=== PATIENT | female | born 1965 | race Hispanic/Latino ===

== ENCOUNTER 2018-06-05 16:11 | Outpatient (CLI) | payer BC | END 2018-06-05 16:12 | disposition home or self-care (01) | LOC: BICMAMMO 16:11 | PROVIDERS: ATTEND Neurological Surgery | DX: Z12.31 Encounter for screening mammogram for malignant neoplasm of breast (principal) | CPT/HCPCS: 77063; 77067 ==

== ENCOUNTER 2018-08-05 16:03 | Outpatient (CLI) | payer BC ==
--- NOTE | 2018-08-05 16:48 | RAD ---
PA AND LATERAL VIEWS OF CHEST: Date: 08/05/18 HISTORY: Abnormal finding on lung field, mid chest pain when taking a deep breath. FINDINGS: There are no previous exams for comparison. The heart size is normal. The lungs are expanded without focal areas of consolidation, pneumothoraces or pleural effusions. There are mild degenerative changes in the spine. IMPRESSION: No radiographic evidence of acute cardiopulmonary process. POS: OFF
== END 2018-08-05 16:04 | disposition home or self-care (01) ==
LOC: BICRAD 16:03
PROVIDERS: ATTEND Family Medicine
DX: R91.8 Other nonspecific abnormal finding of lung field (principal)
CPT/HCPCS: 71046

== ENCOUNTER 2018-08-14 15:29 | Outpatient (CLI) | payer BC ==
--- NOTE | 2018-08-14 17:54 | ULT ---
PELVIC ULTRASOUND INCLUDING TRANSABDOMINAL AND TRANSVAGINAL EXAMINATIONS: HISTORY: A 53-year-old female with a history of pelvis pain. TECHNIQUE: No vascular duplex examination was performed. FINDINGS: The uterus is small, measuring 5.2 x 3.2 x 4 cm. The endometrium is 0.6 cm. The right and left ovar ies are not seen. The exam is limited because of body habitus. No abscess or abnormal fluid collect ion. No uterine masses. IMPRESSION: Somewhat small uterus. Nonvisualized right and left ovaries. No abscess or abnormal fluid collectio n or other acute process. POS: [facility]
== END 2018-08-14 15:30 | disposition home or self-care (01) ==
LOC: BICULT 15:29
PROVIDERS: ATTEND Family Medicine
DX: R10.2 Pelvic and perineal pain (principal); N95.0 Postmenopausal bleeding; N85.8 Other specified noninflammatory disorders of uterus
CPT/HCPCS: 76856

== ENCOUNTER 2019-08-30 10:06 | Outpatient (CLI) | payer BC ==
--- NOTE | 2019-08-30 12:00 | MMO ---
Bilateral MAMMO Bilat Diag [facility]. CLINICAL HISTORY: Patient is 54 years old and is seen for screening. The patient has no family history of breast cancer. The patient has no personal history of cancer. VIEWS: The views performed were: bilateral craniocaudal with tomosynthesis and bilateral mediolateral oblique with tomosynthesis. FILMS COMPARED: The present examination has been compared to prior imaging studies performed at [facility] [place] on 03/13/2015, 04/29/2016, 05/29/2017 and 06/05/2018. This study has been interpreted with the assistance of computer-aided detection. MAMMOGRAM FINDINGS: The breasts are almost entirely fat. There are no suspicious masses, suspicious calcifications, or new areas of architectural distortion. IMPRESSION: THERE IS NO MAMMOGRAPHIC EVIDENCE OF MALIGNANCY. A ROUTINE FOLLOW-UP MAMMOGRAM IN 1 YEAR IS RECOMMENDED. THE RESULTS OF THIS EXAM WERE SENT TO THE PATIENT. ACR BI-RADS Category 1 - Negative MAMMOGRAPHY NOTE: 1. A negative mammogram report should not delay a biopsy if a dominant of clinically suspicious mass is present. 2. Approximately 10% to 15% of breast cancers are not detected by mammography. 3. Adenosis and dense breasts may obscure an underlying neoplasm. Reported by: ARIAS CHIU MD Electonically Signed: [id number]
== END 2019-08-30 10:07 | disposition home or self-care (01) ==
LOC: BICMAMMO 10:06
PROVIDERS: ATTEND Family Medicine
DX: N64.4 Mastodynia (principal)
CPT/HCPCS: 77063; 77066; 77067; G0279

== ENCOUNTER 2019-09-12 15:55 | Emergency (ER) | payer BC ==
--- NOTE | 2019-09-12 16:19 | RAD ---
EXAM: Two views chest PROVIDED CLINICAL HISTORY: Chest pain COMPARISON: 08/05/2028 FINDINGS: Cardiac silhouette and pulmonary vasculature are within normal limits. Calcified granuloma is again seen in the right midlung zone. The lungs are otherwise clear. The osseous structures have a normal appearance. IMPRESSION: No acute cardiopulmonary process.
[2019-09-12 16:23] LABS: #Eosinphils 0.1 thou/uL (0.0-0.7); #Lymphocytes 1.3 thou/uL (1.20-3.40); #Monocytes 0.4 thou/uL (0.11-0.59); #Neutrophils 3.5 thou/uL (1.40-6.50); %Basophils 0.5 % (0.0-1.0); %Eosinophils 2.7 % (0.0-10.0); %Lymphocytes 24.4 % (21.0-51.0); %Neutrophils 64.4 % (42.0-75.0); Hemoglobin 13.4 g/dL (12.0-16.0); Mean Corpuscular HGB CONC 32.4 g/dL (32.0-36.0); Mean Corpuscular Volume 86.4 fL (78.0-98.0); Mean Platelet Volume 8.8 fL (7.4-10.4); Platelet Count 222 thou/uL (130-400); Red Blood Cell (RBC) Count 4.79 mill/uL (4.20-5.40); White Blood Cell (WBC) Count 5.4 thou/uL (4.8-10.8)
[2019-09-12 16:44] LABS: ALT (SGPT) 16 U/L (8-55); AST (SGOT) 18 U/L (5-34); Albumin 4.3 g/dL (3.5-5.0); Alkaline Phosphatase 97 U/L (40-110); Anion Gap 11 mmol/L (10-20); BUN (Urea Nitrogen) 12 mg/dL (9.8-20.1); Bilirubin, Total 0.4 mg/dL (0.2-1.2); CK (CPK) 59 U/L (29-168); Calc. Creatinine Clearance 0 mL/min (70-130); Calcium 9.2 mg/dL (7.8-10.44); Carbon Dioxide 30 mmol/L (22-29); Chloride 106 mmol/L (98-107); Estimated GFR-MDRD 84; Globulin 2.9 g/dL (2.4-3.5); Glucose 132 mg/dL (70-105); Potassium 4.1 mmol/L (3.5-5.1); Protein, Total 7.2 g/dL (6.0-8.3); Sodium 143 mmol/L (136-145)
== END 2019-09-12 17:25 | disposition home or self-care (01) ==
LOC: ERS 15:55
DX: J20.9 Acute bronchitis, unspecified (principal)
CPT/HCPCS: 36415; 71046; 80053; 82550; 84484; 85025; 93005

== ENCOUNTER 2021-02-14 08:06 | Outpatient (CLI) | payer BC | END 2021-02-14 08:07 | disposition home or self-care (01) | LOC: BICULT 08:06 | PROVIDERS: ATTEND Internal Medicine Gastroenterology | DX: R10.13 Epigastric pain (principal); K80.20 Calculus of gallbladder without cholecystitis without obstruction; K76.0 Fatty (change of) liver, not elsewhere classified | CPT/HCPCS: 76705 ==

== ENCOUNTER 2022-01-31 15:52 | Outpatient (CLI) | payer BC | END 2022-01-31 15:53 | disposition home or self-care (01) | LOC: BICMAMMO 15:52 | PROVIDERS: ATTEND Nurse Practitioner Family | DX: Z12.31 Encounter for screening mammogram for malignant neoplasm of breast (principal) | CPT/HCPCS: 77063; 77067 ==

== ENCOUNTER 2023-04-02 15:47 | Outpatient (CLI) | payer BC | END 2023-04-02 15:48 | disposition home or self-care (01) | LOC: BICMAMMO 15:47 | PROVIDERS: ATTEND Family Medicine | DX: Z12.31 Encounter for screening mammogram for malignant neoplasm of breast (principal) | CPT/HCPCS: 77063; 77067 ==

== ENCOUNTER 2023-06-05 07:50 | Outpatient (CLI) | payer BC | END 2023-06-05 07:51 | disposition home or self-care (01) | LOC: BICULT 07:50 | PROVIDERS: ATTEND Family Medicine | DX: R10.11 Right upper quadrant pain (principal); K80.20 Calculus of gallbladder without cholecystitis without obstruction; R16.0 Hepatomegaly, not elsewhere classified; K76.0 Fatty (change of) liver, not elsewhere classified | CPT/HCPCS: 76700 ==

== ENCOUNTER 2024-05-27 15:43 | Outpatient (CLI) | payer BC | END 2024-05-27 15:44 | disposition home or self-care (01) | LOC: BICMAMMO 15:43 | PROVIDERS: ATTEND Family Medicine | DX: Z12.31 Encounter for screening mammogram for malignant neoplasm of breast (principal) | CPT/HCPCS: 77063; 77067 ==